=== PATIENT | female | born 1985 | race Caucasian/White ===

== ENCOUNTER 2021-08-05 16:13 | Emergency (ER) | payer BC, SELFPAY ==
[2021-08-05 16:22] VITALS: BP 132/84; PULSE 94; RESP 14; TEMP 36.8; O2SAT 99
--- NOTE | 2021-08-05 16:59 | ED.ABDPAIN ---
HPI - Abdominal Pain General Chief Complaint: Abdominal Pain Stated Complaint: Abdominal Pain Time Seen by Provider: 08/05/21 16:57 Source: patient and RN notes reviewed Mode of arrival: ambulatory Limitations: no limitations History of Present Illness HPI narrative: 36-year-old female presents with concern for a late menstrual period, nausea. Reports her period is approximately 1 week late. She denies history of irregular menstrual periods. She reports mild diarrhea with some abdominal cramp. She denies abnormal vaginal discharge, dysuria, frequency, urgency, hematuria. She denies fever, body aches, chills,. MD elicited complaint: other (Late menstrual period) Related Data Home Medications Medication Instructions Recorded Confirmed No Home Medications 08/05/21 08/05/21 Allergies Allergy/AdvReac Type Severity Reaction Status Date / Time butalbital AdvReac Unknown Dizziness Verified 08/05/21 16:27 Review of Systems Review of Systems: CONSTITUTIONAL: Denies malaise, chills, sweats, or fever. ENT: Denies rhinorrhea, congestion, sinus pain, otalgia or sore throat. CARDIOVASCULAR: Denies chest pain, palpitations, or edema. RESPIRATORY: Denies cough or dyspnea. GASTROINTESTINAL: Denies abdominal pain, nausea, vomiting, bloody, or mucous stools. She reports some abdominal cramping with diarrhea GENITOURINARY: Denies dysuria or hematuria. MUSCULOSKELETAL: Denies myalgia. NEUROLOGIC: Denies headache. All systems reviewed & are unremarkable except as noted in HPI and below PMFSH Comments At time of signature, agree with nursing past medical, surgical, social and family history. There is no relevant family history pertinent to the presenting complaint Exam Narrative: GENERAL: Well-appearing, well-nourished, and in no acute distress. HEAD: Normocephalic. EYES: PERRLA, conjunctivae clear. NECK: Supple. No lymphadenopathy CHEST: Clear to auscultation. No respiratory distress. HEART: Regular rate and rhythm. ABDOMEN: Soft, nontender upon palpation, nondistended, normal active bowel sounds, no palpable or pulsatile masses, no guarding. No CVA tenderness SKIN: Warm, dry, no rash. NEURO: Alert and oriented x3. PSYCH: Normal mood and affect Course Course Emergency Course: Patient advised of urine test results, advised to follow-up with primary care or gynecology for further evaluation. Understands reasons to go to the emerge concern. Patient is aware of diagnosis, understands and agrees to treatment plan. Anticipatory guidance given. Patient agrees to follow-up as directed and is aware of reasons to seek care at the emergency department. Portions of this record may have been created with voice recognition software Level of Care: Express Care Visit Vital Signs Vital signs: Vital Signs Temperature 98.3 F 08/05/21 16:22 Pulse Rate 94 08/05/21 16:22 Respiratory Rate 14 08/05/21 16:22 Blood Pressure 132/84 08/05/21 16:22 Pulse Oximetry 99 08/05/21 16:22 Temperature 98.3 F 08/05/21 16:22 Pulse Rate 94 08/05/21 16:22 Respiratory Rate 14 08/05/21 16:22 Blood Pressure 132/84 08/05/21 16:22 Pulse Oximetry 99 08/05/21 16:22 Reviewed. MDM - Abdominal Pain MDM Narrative Medical decision making narrative: Exam findings and imaging show no acute concerns or changes; patient is non-toxic appearing and is in no distress. Patient is appropriate for outpatient treatment and follow-up. Lab Data Attestation: I reviewed the patient's lab results. Labs: UCG Bedside Result Negative Reference Range: Negative Urine Glucose Negative Reference Range: Negative Urine Bilirubin Negative Reference Range: Negative Urine Ketone Negative Reference Ra
== END 2021-08-05 17:10 | disposition home or self-care (01) ==
PROVIDERS: Emergency Provider Nurse Practitioner
DX: N92.6 Irregular menstruation, unspecified (principal)
CPT/HCPCS: 81003; 81025; 99202; G0463

== ENCOUNTER 2025-02-07 18:40 | Emergency (ER) | payer BC, SELFPAY ==
--- NOTE | ~2025-02-07 | XR_ITS ---
Examination: XR chest 2V Clinical History: cough Comparison: None Technique: PA and Lateral Findings: Cardiomediastinal silhouette normal size and configuration. Lungs clear. No acute bony abnormality. IMPRESSION: 1. No acute cardiopulmonary findings. Reviewed, dictated and finalized at location R.
--- OUTSIDE RECORDS SUMMARY | 2025-02-07 18:42 | XMS_ITS | Clinical Summary ---
Author Organization [facility] Address [address] [place] [address] Care Team Providers Care Medical Lab Specialist Name Role Phone Magali Sanchez MD Unavailable [phone] Juanita Chu MD Primary Care Provider + Anish Pacheco MD Unavailable Emy Stokes NP Unavailable [phone] Bob Sam MD Unavailable [phone] Allergies Active Allergy Reactions Criticality Noted Date Comments Hczxpeglim-Prpqzwdxvaedq-Icfu Angioedema High 2023 Mngzryxmsh-Yphtqxdyud-Jyx-Cod Syncope High 2021 Tsdmlvl-Fdwjnlxwnh-Ndu-Caff Dizziness Low 11/09/19 18 Medications nicotine (NICODERM CQ) [address] 1 patch on the skin daily 4 Active polyethylene glycol (MIRALAX) 17 gram/dose bulk powder Take 17 g by mouth daily 595 g 5 Active ibuprofen (ADVIL,MOTRIN) 600 mg tablet Take 1 tablet (600 mg total) by mouth every 6 (six) hours 90 tablet 5 Active acetaminophen (TYLENOL) 325 mg tablet Take 2 tablets (650 mg total) by mouth every 6 (six) hours as needed for pain 90 tablet 5 Active benzonatate (TESSALON) 100 mg capsule Take 1 capsule (100 mg total) by mouth 3 (three) times a day as needed for cough 20 capsule 5 Active cyclobenzaprine (FLEXERIL) 5 mg tablet Take 1 tablet (5 mg total) by mouth 3 (three) times a day as needed for muscle spasms for up to 14 doses 14 tablet 5 Active Additional Information Patient not taking.Reported on 06/06/2024 ONDANSETRON ORAL 4 mg every 4 hours as needed for nausea or vomiting Active traMADoL (ULTRAM) 50 mg tablet Take 1 tablet (50 mg total) by mouth every 8 (eight) hours as needed for pain for up to 10 days 30 tablet 5 Active cyclobenzaprine (FLEXERIL) 5 mg tablet Take 1 tablet (5 mg total) by mouth 3 (three) times a day as needed for muscle spasms 30 tablet 5 Active Active Problems Problem Noted Date Diagnosed Date Protein-calorie malnutrition, moderate 5 Intra-abdominal abscess 05/12/2024 Assessment & Plan (05/13/2024 6:31 PM MANAGER WEB APPLICATION): Patient recently admitted 04/30-05/07 for tubo-ovarian abscess thought secondary to ruptured appendicitis and possible SBO with multiple abdominal fluid collection with largest in left adnexa s/p ANNE drain placement by IR, now presenting with bloody output from drainage and increased pain. OSH CT AP from OSH noted increased fluid and air distention of small bowel c/f ileus or developing SBO, new or increasing bowel wall thickening mid to distal small bowel may be related to inflammation. Noted left side drainage catheter with resolution of local collection and additional anterior abscess collection up to 5.1 cm, similar to prior imaging. This Admission Mild leukocytosis on arrival, afebrile, VSS. Lactate normal. Interventional Radiology consulted s/p Removal of Drain on 05/12/2024 ACCS and FELT [facility]ANGER consulted, no surgical intervention indicated, no clinical concern for SBO. Infectious Disease Team consulted and provided recommendations for antibiotic therapy (Augmentin) Plan - Augmentin BID - Outpatient follow up with Infectious Disease Clinic on 05/25/24 - Outpatient follow up with Surgery Clinic ([facility]) 06/06/2024 - Scheduled Tylenol and Lidoderm; PRN Toradol and oxycodone for breakthrough Thrombocytosis 05/12/2024 Assessment & Plan (05/14/2024 2:30 PM MANAGER WEB APPLICATION): Platelet counts ranging from 600-1000 during prior admission. Likely reactive in setting of infection. Patient recommended by hematology to repeat CBC in one month to look for resolution on prior discharge. - Admission Platelets > 1000 at OSH, - Plate count here 700's - Follow up with PCP Anxiety and depression 05/12/2024 Assessment & Plan (05/12/2024 10:38 AM MANAGER WEB APPLICATION): Mood stable. No SI/HI. Patient reports managed by PCP, discussing possible medications but has had prior issues with insurance coverage of medications. Lung nodule 05/12/2024 Assessment & Plan (05/13/2024 6:31 PM MANAGER WEB APPLICATION): CT chest 04/27/24: multifocal tree in bud nodularity LATIA and medial bilateral lower lobes, 1.0 x 0.7 cm LATIA nodule, mild emphysematous changes, no mediastinal or hilar LN; lower lobe nodularity was not seen on CT abd 03/27/24. Evaluated by pulmonology at OSH prior to transfer to [facility] on last admission, thought likely infectious, inflammatory given development over course of one month as compared to prior imaging. Patient was treated for community acquired pneumonia on prior admission. - Pulmonology recommended repeat CT in 6-8 weeks to re-evaluate nodularity; if LATIA nodule persists, may benefit from PET CT for further evaluation given smoking history. - Legionella urinary Ag 04/29: negative, S. pneumoniae urinary Ag 04/29: negative, MRSA swab negative Perforated appendicitis 05/05/2024 Assessment & Plan (05/05/2024 1:43 PM MANAGER WEB APPLICATION): 39 y.o. female with PMH including anxiety, depression, cigarette smoking admission who initially presented to OSH ([facility]) with a day of fever, productive cough and lower abdominal pain. Imaging showed showed perforated appendicitis with multiple enhancing pelvic fluid collections in the rectouterine and presacral space including a 6cm L tubo-ovarian abscess and small bowel obstruction with tethering and transition point likely within the low R pelvic in are of appendicolith. Additionally imaging c/f L pulmonary nodule which reported to be c/f MAC, however, after review by ID attending and with radiologist here at [facility] not c/f MAC. Transferred to [facility] 04/30 for further management. S/p IR drain into the biggest collection along the L adnexa abutting the rectum--90 mL of thick, jones fluid aspirated and drain left in. Cx grew mix a/an. Recommendations: -Stop ertapenem. -Start amoxicillin-clavulanate 875/125mg PO q12. Duration of amoxicillin- clavulanate will tentatively be 2-[address] A/P (to ensure resolution of abscesses) with contrast results and ID follow up (to determine final duration of antibiotics). Pt is not contracted with ID so in network ID provider will need to be found/set up prior to discharge-discussed with primary team. ID will sign off. Pelvic inflammatory disease 04/30/2024 Nausea 04/28/2024 Hyponatremia 04/27/2024 Small bowel obstruction 04/26/2024 Community acquired pneumonia 04/26/2024 Severe malnutrition 02/12/2022 Hepatic steatosis 02/12/2022 Anemia 02/12/2022 Assessment & Plan (05/13/2024 6:32 PM MANAGER WEB APPLICATION): Prior work up consistent anemia of chronic disease., possibly in setting of long standing tobacco use with mild centrilobular emphysematous changes on prior CT chest imaging, in additional to acute infectious and inflammatory response. No active bleeding on exam. Iron 28 (L), ferritin 227 (H), TIBC 150 (L) Tsat 19% (L) Hemolysis labs: Haptoglobin 373 (H), Retic 3.5 (H), TSH 0.60 (low normal), LDH hemolyzed - Hemoglobin stable at 8.8gdL (now with uptrend) - Ferrous Sulfate and Miralax started Upper GI bleed 02/11/2022 Hypokalemia 02/11/2022 Weight loss 02/11/2022 Overview (02/12/2022): Added automatically from request for surgery [id number] Lumbar strain, initial encounter 07/13/2019 Lumbar radiculopathy, acute 07/13/2019 Fatty liver Resolved Problems Problem Noted Date Diagnosed Date Resolved Date Tobacco use 02/11/2022 05/14/2024 Assessment & Plan (05/12/2024 10:38 AM MANAGER WEB APPLICATION): Advised cessation. Nicotine patch ordered. Surgical History Surgery Date Site/Laterality Comments LAPAROSCOPIC CHOLECYSTECTOMY 05/04/2006 - 05/03/2007 IMAGE GUIDED DRAINAGE PERITO CHANDAN OR RETROPERITONEAL FLUID COLLECTION 05/02/2024 N/A ABSCESS CATHETER INJECTION 05/12/2024 N/A Medical History Medical History Date Comments Gastric ulcer 2018 and 2021 Tobacco use Anxiety Depression Family History Medical History Relation Name Comments Heart attack Father Diabetes Mother weight loss of unknown origin Mother's Sister Cancer Paternal Grandmother Relation Name Status Comments Father Mother Mother's Sister Paternal Grandmother Social History Tobacco Use Types Packs/Day Years Used Date Smoking Tobacco: Every Day Cigarettes 0.5 15 Tobacco Cessation:Ready to Q uit: Not Asked; Counseling Given: Not Answered [facility] Loudeye Answer Date Recorded In the past 12 months has logolineup, oil, or water Swipesense threatened to shut off services in your home? Yes 05/17/2024 Humiliation, Afraid, Rape, and Kick questionnair e Answer Date Recorded Within the last year, have y ou been afraid of your partner or ex-partner? No 05/12/2024 Within the last year, have y ou been humiliated or emotionally abused in other ways by your partner or ex-partner? No Within the last year, have y ou been kicked, hit, slapped, or otherwise physically hurt by your partner or ex-partner? No 05/12/2024 Within the last year, have y ou been raped or forced to have any kind of sexual activity by your partner or ex-partner? No 05/12/2024 Social Connection and Isolation Panel Answer Date Recorded In a typical week, how many times do you talk on the phone with family, friends, or neighbors? Twice a week 05/17/2024 How often do you get together with friends or re latives? Never 05/17/2024 How often do you attend scientologist or yazidism serv ices? Never 05/17/2024 Do you belong to any clubs o r organizations such as scientologist groups, unions, fraternal or athletic groups, or school groups? No 05/17/2024 How often do you attend meet ings of the clubs or organizations you belong to? Never 05/17/2024 Are you , , di vorced, , never , or living with a partner? 05/17/2024 AUDIT-C Answer Date Recorded Q1: How often do you have a drink containing alc ohol? 2-3 times a week 05/12/2024 Q2: How many drinks containi ng alcohol do you have on a typical day when you are drinking? 3 or 4 05/12/2024 Q3: How often do you have si x or more drinks on one occasion? Never 05/12/2024 Overall Financial Resource Strain (CARDIA) Answe r Date Recorded How hard is it for you to pa y for the very basics like food, housing, medical care, and heating? Very hard 05/17/2024 [facility] [place] [facility] Occupat ional Health - Occupational Stress Questionnaire Answer Date Recorded Do you feel stress - tense, restless, nervous, or anxious, or unable to sleep at night because your mind is troubled all the time - these days? To some extent 05/12/2024 Exercise Vital Sign Answer Date Recorde d On average, how many days pe r week do you engage in moderate to strenuous exercise (like a brisk walk)? 5 days 05/12/2024 On average, how many minutes do you engage in exercise at this level? 20 min 05/12/2024 Hunger Vital Sign Answer Date Recorded Within the past 12 months, y ou worried that your food would run out before you got the money to buy more. Never true 06/06/19 25 Within the past 12 months, t he food you bought just didn't last and you didn't have money to get more. Never true 06/06/2024 PRAPARE - Transportation Answer Date Re corded In the past 12 months, has l ack of transportation kept you from medical appointments or from getting medications? Yes 05/04 In the past 12 months, has l ack of transportation kept you from meetings, work, or from getting things needed for daily living? Yes 05/17/2024 Housing Stability Vital Sign Answer Jesus e Recorded In the last 12 months, was t here a time when you were not able to pay the mortgage or rent on time? Yes 05/17/2024 In the past 12 months, how m any times have you moved where you were living? 0 05/17/2024 At any time in the past 12 m [facility], were you homeless or living in a nursing home (including now)? No 05/17/2024 Personal Safety Answer Date Recorded Have you ever been in or are you currently in a harmful physical or emotional relationship or is someone making you feel afraid or unsafe? Denies 05/11/2024 Comments No Sex and Gender Information Value Date Recorded Sex Assigned at Not on file Legal Sex Female 4:46 PM MANAGER WEB APPLICATION Gender Identity Not on file Sexual Orientation Not on file Obstetrics History Last Filed Vital Signs Vital Sign Reading Time Taken Comments Blood Pressure 181/112 06/06/2024 8:02 AM MANAGER WEB APPLICATION Pulse 84 06/06/2024 8:02 AM MANAGER WEB APPLICATION Temperature 35.9 C (96.7 F) 06/06/2024 8:02 AM MANAGER WEB APPLICATION Respiratory Rate 16 06/06/2024 8:02 AM MANAGER WEB APPLICATION Oxygen Saturation 98% 06/06/2024 8:02 AM MANAGER WEB APPLICATION Inhaled Oxygen Concentration - - Weight 47.4 kg (104 lb 8 oz) 06/06/2024 8:02 AM MANAGER WEB APPLICATION Height 157.5 cm (5' 2) 06/06/2024 8:02 AM MANAGER WEB APPLICATION Body Mass Index 19.11 06/06/2024 8:02 AM MANAGER WEB APPLICATION Plan of Treatment Health Maintenance Due Date Last Done Comments Breast Cancer Screening-Mammogram 1983 Depression Screening 1983 Varicella Vaccines (1 of 2 - 13+ 2-dose series) 1996 Regular Well Visit/Exam 18-64 2001 Pneumococcal vaccine <65 (1 of 2 - PCV) 2002 HPV Vaccines (1 - 3-dose SCDM series) 2010 DTaP/Tdap/Td Vaccine (2 - Tdap) 06/21/2024 5 Covid-19 Vaccine (2 - 2024- season) 01/02/202511/2020 Influenza Vaccine (#1) 2025 02/06/2015, 2014 Cervical Cancer Screening 05/05/2025 05/05/2024, 06/2024 Hepatitis B Screening Completed 05/02/2024 Hepatitis C Screening Completed 05/02/2024, 024 Procedures Procedure Name Priority Date/Time Associated Diagnosis Comments HIGH RISK HPV DNA DETECTION WITH GENOTYPING Routine 05/05/2024 10:43 AM MANAGER WEB APPLICATION HEPATITIS C ANTIBODY Routine 05/02/2024 10:57 PM MANAGER WEB APPLICATION from Last 3 Months or Most Recently Relevant to Health Maintenance Results * High Risk HPV DNA Detection with Genotyping (Molecular component) (05/05/2024 10:43 AM MANAGER WEB APPLICATION) HPV HR 16 Not Detected Not Detected [facility] HPV HR 18 Not Detected Not Detected [facility] HPV HR Non 16/18 Not Detected Not Detected [facility] Comment: Interpretive Data Nucleic acid amplification for detection of high-risk Human Papilloma virus (HPV) is performed by the Divya Kip 6800 HPV test. This assay specifically detects HPV-16 and HPV-18 genotypes. The following HPV genotypes are detected as high-risk HPV: HPV-31, 33, 35, ,39, 45, 51, 52, 56, 58, 59, 66, and 68. This assay has been approved by the [place] Food and Drug Administration for detection of HPV in cervical specimens collected by a physician using an endocervical brush/spatula or cervical broom and placed in the ThinPrep Pap Test PreservCyt collection containers. The performance characteristics of this test have been verified by the [facility] Molecular Infectious Disease laboratory. Correlate with separately reported cytology results, as applicable. Interpretive data last revised 22 Endocervical 05/05/2024 10:4 3 AM MANAGER WEB APPLICATION 05/09/2024 10:44 AM MANAGER WEB APPLICATION us Tammy Stokes MD LAB BODY FLUIDS AND S TOOLS ORDERABLES Final Result [facility] Department [place] [address] [facility] * Hepatitis C antibody Blood (05/02/2024 10:57 PM MANAGER WEB APPLICATION) Hep C Ab Nonreactive Nonreactive Comment:Antibodies to HCV no t detected. Does NOT exclude the possibility of recent exposure to HCV. Current interpretive data was last revised on 22 Blood 05/02/2024 10:5 7 PM MANAGER WEB APPLICATION 05/02/2024 11:45 PM MANAGER WEB APPLICATION Tammy Stokes MD LAB MICROBIOLOGY - GE NERAL ORDERABLES Final Result [facility] Department [place] [address] from Last 3 Months or Most Recently Relevant to Health Maintenance Insurance [id number] [facility] PLAN [facility] PL[employer] Advance Directives For more information, please contact: [phone] * Full Code (Latest Code Status on File) Date Activated Date Inactivated Comments 05/12/2024 10:11 AM 05/14/2024 8:10 PM * Full Code Date Activated Date Inactivated Comments 05/12/2024 9:25 AM 05/12/2024 10:11 AM * Full Code Date Activated Date Inactivated Comments 04/30/2024 1:43 AM 05/07/2024 10:06 PM * Full Code Date Activated Date Inactivated Comments 04/26/2024 6:30 AM 04/30/2024 1:20 AM * Full Code Date Activated Date Inactivated Comments 02/13/2022 1:01 PM 02/14/2022 6:47 PM Care Teams Medical Lab Specialist Relationship Specialty Start Date End Date Juanita Chu MD PCP - General Family Medicine 07/15/22 Magali Sanchez MD Consulting Physician Gastroenterology 02/14/22 [place] [id number] [facility] [address] [place] [id number] Consulting Physician Pulmonary Disease 04/29/24 Emy Stokes NP [address] [facility] [address] [place] [address] Nurse Practitioner Obstetrics and Gynecology 04/29/24 [place] [id number] [address] [address] Surgeon General Surgery 04/29/24
--- OUTSIDE RECORDS SUMMARY | 2025-02-07 18:42 | XMS_ITS | Clinical Summary ---
Author Organization [facility] Care Team Providers Care Art Psychotherapist Name Role Phone Provider, None Primary Care Provider Unavailabl e Allergies Active Allergy Reactions Criticality Noted Date Comments Hbfegauqbm-Xyea-Xmiz eine Other (see Comments) 10/28/2018 Syncope, dizziness Medications Doxylamine Succinate, Sleep, (UNISOM PO) Take by mouth. Activ e omeprazole (PRILOSEC) 20 MG CAPSULE DELAYED RELEASE Take one pill BID x 1 week then one pill daily 30 Cap 9 Active Additional Information Patient not taking.Reported on 03/07/2020 sucralfate (CARAFATE) 1 GM Tablet Take 1 Tab by mouth 4 times daily. 60 Tab 9 Active Additional Information Patient not taking.Reported on 03/07/2020 Aspirin-Acetami nophen-Caffeine (EXCEDRIN PO) Take by mouth. A ctive Pseudoephedrine HCl (SUDAFED PO) Take by mouth. Activ e ketorolac (TORADOL) 10 MG Tablet Take 1 Tablet by mouth every 6 hours as needed for Moderate or more severe pain. 20 Tablet 1 Active Active Problems No known active problems Social History Tobacco Use Types Packs/Day Years Used Date Smoking Tobacco: Every Day Cigarettes Smokeless Tobacco: Never Alcohol Use Standard Drinks/Week Comments Yes 0 (1 standard drink = 0.6 oz pur e alcohol) occasionally Comments No Sex and Gender Information Value Date Recorded Sex Assigned at Not on file Legal Sex Female 10:11 AM CDT Gender Identity Not on file Sexual Orientation Not on file Last Filed Vital Signs Vital Sign Reading Time Taken Comments Blood Pressure 129/90 01/30/2021 5:57 PM CDT Pulse 86 01/30/2021 5:59 PM CDT Temperature 36.6 C (97.8 F) 01/30/2021 4:10 PM CDT Respiratory Rate 18 01/30/2021 4:10 PM CDT Oxygen Saturation 100% 01/30/2021 5:59 PM CDT Inhaled Oxygen Concentration - - Weight 54.4 kg (119 lb 14.9 oz) 01/30/2021 4:11 PM CDT Height 157.5 cm (5' 2) 01/30/2021 4:10 PM CDT Body Mass Index 21.94 01/30/2021 4:10 PM CDT Plan of Treatment Health Maintenance Due Date Last Done Comments Hepatitis C Virus (HCV) Screening 1983 Mammogram 1983 TdaP Immunization 1983 Hepatitis B Immunization (1 of 3 - 19+ 3-dose series) 2002 Pneumococcal Immunization Co mbined (1 of 2 - PCV) 2002 Pap Smear 2004 Human Papillomavirus (HPV) Immunization (1 - 3-dose SCDM series) 2010 Cervical Cancer Screening (CCS) 2013 HPV/Cotest 2013 Discussion re Starting/Frequ ency of Mammograms 2023 Influenza Immunization (#1) 2025 02/06/2015 SARS-COV-2 Immunization (2 - season) 2025 07/08/2020 Respiratory Syncytial Virus (RSV) Immunization (Adult) (1 - 1-dose 75+ series) 2058 Meningococcal Immunization (ACWY) Aged Out No longer eligible based on patient's age to complete this topic Rotavirus Immunization Aged Out No lo nger eligible based on patient's age to complete this topic Insurance MEDICAID [place] Care Teams Art Psychotherapist Relationship Specialty Start Date End Date Provider, None [place] PCP - General 05/19/18
[2025-02-07 18:52] VITALS: BP 179/108; PULSE 81; RESP 20; TEMP 36.6; O2SAT 100
[2025-02-07 19:30] LABS: EDCOVIDSCREEN Negative (Negative); EDINFLUASCREEN Negative (Negative); EDINFLUBSCREEN Negative (Negative); EDSTREPNEGPOS1 Negative (Negative)
--- NOTE | 2025-02-07 19:58 | ED.GENADULT ---
HPI - General Adult General Chief complaint: Upper Respiratory Infection Stated complaint: COVID Exposure Source: patient Mode of arrival: ambulatory Limitations: no limitations History of Present Illness HPI narrative: Patient presents for evaluation of sick symptoms. She reports sore throat that started yesterday with associated shortness of breath, fatigue, chills, and nausea. She denies any vomiting or diarrhea. She has had a cough for several months. She is concerned she has COVID as she was exposed to someone [facility] with [facility] over the weekend. She smokes half a pack per day. She is not taking any medication to assist with her symptoms. Her daughter is being evaluated here for similar symptoms. Related Data Allergies Allergy/AdvReac Type Severity Reaction Status Date / Time butalbital AdvReac Unknown Dizziness Verified 02/07/25 18:58 Review of Systems Review of Systems: CONSTITUTIONAL: Reports chills and fatigue. Denies fever. EYES: Denies visual changes, redness, or discharge. ENT: Reports sore throat. CARDIOVASCULAR: Denies chest pain, palpitations, or edema. RESPIRATORY: Reports cough. Denies shortness of breath. GASTROINTESTINAL: Reports nausea. Denies vomiting or diarrhea. GENITOURINARY: Denies dysuria or hematuria. SKIN: Denies rash or itching. MUSCULOSKELETAL: Denies back pain, joint pain, or myalgia. NEUROLOGIC: Denies headache, numbness, dizziness, or weakness. PSYCHIATRIC: Denies anxiety or depression. [facility] Past Medical History Medical History Retroperitoneal abscess Surgical History Surgical History No pertinent past surgical history Family History Family History Mother Family history non-contributory Social History Social History Smoking packs per day: 1 Smoking cigarettes per day: 20.0 Smoking status: Current every day smoker Tobacco type: cigarettes Alcohol intake: current Substance use: current Substance use type: marijuana Living arrangements: with family Gender identity (if verbalized by the patient): Female Sexual Orientation (if Verbalized by the Patient): Straight or Heterosexual Spiritual care concerns: No Exam Narrative: GENERAL: Well-appearing, well-nourished, and in no acute distress. HEAD: Normocephalic, atraumatic. EYES: PERRLA and EOMI. ENT: Nares clear, no rhinorrhea or epistaxis. Mucous membranes moist. Oropharynx without tonsillar hypertrophy exudate or other lesions. Bilateral tympanic membranes are erythematous NECK: Supple. No adenopathy or masses. No carotid bruits or JVD CHEST: Rales present on exam. Cough present on exam. HEART: Regular rate and rhythm. No murmur heard. Normal peripheral pulses. ABDOMEN: Soft, nontender, nondistended, normal active bowel sounds. EXTREMITIES: Normal range of motion. No edema. SKIN: Warm, dry, no rash. NEURO: No focal deficits. Alert and oriented x3. PSYCH: Normal mood and affect. Course Course Emergency Course: This is a 39-year-old female who presented for evaluation of sick symptoms. COVID, strep, influenza were all negative. Will send throat culture. Chest x-ray normal. She has evidence of otitis media on exam. Will treat with Augmentin. Increase hydration. Advised smoking cessation. Follow up primary provider. Go to the ER for worsening symptoms. Patient in agreement with plan of care. Level of Care: Express Care Visit Vital Signs Vital signs: Vital Signs Temperature 36.6 C 02/07/25 18:52 Pulse Rate 81 02/07/25 18:52 Respiratory Rate 20 02/07/25 18:52 Blood Pressure 179/108 H 02/07/25 18:52 Pulse Oximetry 100 02/07/25 18:52 Temperature 36.6 C 02/07/25 18:52 Pulse Rate 81 02/07/25 18:52 Respiratory Rate 20 02/07/25 18:52 Blood Pressure 179/108 H 02/07/25 18:52 Pulse Oximetry 100 02/07/25 18:52 Medical Decision Making Vital Signs Vital Signs: Vital Signs Temperature 36.6 C 02/07/25 18:52 Pulse Rate 81 02/07/25 18:52 Respiratory Rate 20 02/07/25 18:52 Blood Pressure 179/108 H 02/07/25 18:52 Pulse Oximetry 100 02/07/25 18:52 Temperature 36.6 C 02/07/25 18:52 Pulse Rate 81 02/07/25 18:52 Respiratory Rate 20 02/07/25 18:52 Blood Pressure 179/108 H 02/07/25 18:52 Pulse Oximetry 100 02/07/25 18:52 Lab Data Labs: Lab Results 02/07/25 Range/Units 19:28 POC Influenza A Ag Negative (Negative) POC Influenza B Ag Negative (Negative) POC SARS CoV-2 Ag Negative (Negative) POC Grp A Strep Screen Negative (Negative) Imaging Data Radiologist's impression: Examination: XR chest 2V Clinical History: cough Comparison: None Technique: PA and Lateral Findings: Cardiomediastinal silhouette normal size and configuration. Lungs clear. No acute bony abnormality. IMPRESSION: 1. No acute cardiopulmonary findings. Discharge Plan Discharge Clinical Impression: Otitis media Patient Disposition: Home Condition: Stable Instructions: Antibiotic Form, Ear Infection (ED) Patient Language: Danish Prescriptions: New amoxicillin-pot clavulanate 875-125 mg tablet 1 tablet PO Q12H Qty: 20 0RF Follow-up/Referrals: Flaco Velazquez MD [Physician, Family Practice] Stand Alone Forms: Work/School Release IP Time of Disposition: 19:40
== END 2025-02-07 19:49 | disposition home or self-care (01) ==
PROVIDERS: Emergency Provider Nurse Practitioner
DX: H66.90 Otitis media, unspecified, unspecified ear (principal); F17.210 Nicotine dependence, cigarettes, uncomplicated; Z20.822 Contact with and (suspected) exposure to COVID-19
CPT/HCPCS: 71046; 87081; 87426; 87804; 87880; 99213; G0463